=== PATIENT | female | born 1945 | race Caucasian/White ===

== ENCOUNTER 2017-08-24 11:05 | Emergency (ER) | payer MEDICARE ==
[~2017-08-24] VITALS: Ht 162.6 cm; Wt 83.9 kg
[~2017-08-24 11:05] MED LIST: ACCUNEB SO1.25 MG/1 INH; ADVAIR INH; ASPIR 8181 MG PO; LEVAQUIN 250 M250 MG PO; PANTOPRAZOLE SO40 M1 PO; PREDNISONE 10 M10 MG; UNICOMPLEX M TA1 TA1 PO
[2017-08-24 12:00] LABS: ABSOLUTE MONOCYTES 0.6 thou/uL (0.0-1.2); ABSOLUTE NEUTROPHILS 3.6 thou/uL (1.6-8.1); BASOPHILS 0.8 %; HEMATOCRIT 44.7 % (37.0-47.0); LYMPHOCYTES 18.8 %; MCH 29.3 pg (26.0-34.0); MCHC 33.5 g/dL (28.0-37.0); MCV 87.5 fL (80.0-100.0); MONOCYTES 11.3 %; MPV 8.3 fl. (7.2-11.1); NUCLEATED RBCS 0 /100WBC; PLATELET COUNT* 171 thou/uL (150-400); POLYS 69.1 %; RBC 5.11 mil/uL (4.20-5.00); RDW-CV 14.5 % (10.5-14.5); WBC 5.2 thou/uL (4.0-11.0)
[2017-08-24 12:09] LABS: ANION GAP 7 mmol/L (7-16); BUN 16 mg/dL (7-18); CALCIUM 8.5 mg/dL (8.5-10.1); CHLORIDE 100 mmol/L (98-107); CO2 29 mmol/L (21-32); CREATININE 0.7 mg/dL (0.6-1.3); GLUCOSE 105 mg/dL (70-99); POTASSIUM 3.5 mmol/L (3.5-5.1); SODIUM 136 mmol/L (136-145)
[2017-08-24 12:17] LABS: INFLUENZA A ANTIGEN None Detected (None Detect)
[2017-08-24 12:19] LABS: ALBUMIN 3.3 g/dL (3.4-5.0); ALKALINE PHOSPHATASE 75 U/L (46-116); LIPASE 112 U/L (73-393); NT-PRO BRAIN NAT PEPTIDE 57 pg/mL (<300); SGOT 33 U/L (15-37); SGPT 26 U/L (30-65); TOTAL BILIRUBIN 0.3 mg/dL (<0.1-1.0); TOTAL PROTEIN 6.8 g/dL (6.4-8.2); TROPONIN-I LEVEL <0.06 ng/mL (<0.06)
[2017-08-24] MEDS ORDERED: OSELB75 PO (12:31)
[2017-08-24 12:36] VITALS: BP 130/60
--- NOTE | 2017-08-25 11:41 | EKG ---
[place] [address] ELECTROCARDIOGRAM REPORT Name: GLENDYFARHANA TOMAS Fernando Room: [facility]#: [id number] Admission: 08/24/17 Attend Phys: Discharge: 08/24/17 Date of : 41 Report #: [id number] THIS REPORT FOR: //name// [facility] ED Test Date: 2017-08-24 Test Time: 11:14:16 Pat Name: FARHANA STYLES Department: Room: Gender: F Statistical Geneticist: Josephine CHILDS : 1945 Requested By: Magen Alarcon Order Number: [id number] MD: Warner Franklin Measurements Intervals [place] Rate: 97 P: 38 ME: 150 QRS: -24 QRSD: 83 T: 31 QT: 351 QTc: 446 Interpretive Statements Sinus rhythm consider Inferior infarct, old Anterior infarct, old Compared to ECG 01/06/2016 16:05:12 Sinus tachycardia no longer present Myocardial infarct finding still present Electronically Signed On 08-25-2017 11:41:09 ESTATE PLANNING ATTORNEY by Warner Franklin [email or web address] <ELECTRONICALLY SIGNED> By: Warner Franklin MD, [facility] 08/25/17 1141 1114 1114 Warner Franklin MD, [facility] /EPI
== END 2017-08-24 12:37 | disposition home or self-care (01) ==
LOC: M.ERS 11:05
PROVIDERS: Emergency Medicine
DX: J11.1 Influenza due to unidentified influenza virus with other respiratory manifestations (principal); R07.89 Other chest pain; J44.9 Chronic obstructive pulmonary disease, unspecified; Z90.89 Acquired absence of other organs; Z90.49 Acquired absence of other specified parts of digestive tract; Z90.710 Acquired absence of both cervix and uterus; Z88.6 Allergy status to analgesic agent; Z88.5 Allergy status to narcotic agent; Z88.0 Allergy status to penicillin; Z88.2 Allergy status to sulfonamides; Z87.891 Personal history of nicotine dependence

== ENCOUNTER 2017-09-16 13:06 | Emergency (ER) | payer MEDICARE ==
[~2017-09-16] VITALS: Ht 165.1 cm; Wt 83.9 kg
[~2017-09-16 13:06] MED LIST changes: +OSELB75 PO
[2017-09-16 13:55] VITALS: BP 144/69
== END 2017-09-16 13:55 | disposition home or self-care (01) ==
LOC: M.ERS 13:06
DX: S60.211A Contusion of right wrist, initial encounter (principal); J44.9 Chronic obstructive pulmonary disease, unspecified; Z88.6 Allergy status to analgesic agent; Z88.5 Allergy status to narcotic agent; Z88.0 Allergy status to penicillin; Z88.2 Allergy status to sulfonamides; Z87.891 Personal history of nicotine dependence; W22.8XXA Striking against or struck by other objects, initial encounter; Y93.89 Activity, other specified; Y92.89 Other specified places as the place of occurrence of the external cause; Y99.8 Other external cause status

== ENCOUNTER 2019-01-21 12:56 | Inpatient (IN) | payer MEDICARE ==
[~2019-01-21] VITALS: Ht 165.1 cm; Wt 80.2 kg
[2019-01-21 13:02] VITALS: BP 194/86
[2019-01-21 13:54] LABS: ANION GAP 8 mmol/L (7-16); APTT 33.8 Seconds (25.0-31.3); BUN 16 mg/dL (7-18); CALCIUM 8.6 mg/dL (8.5-10.1); CHLORIDE 95 mmol/L (98-107); CO2 29 mmol/L (21-32); CREATININE 0.6 mg/dL (0.6-1.3); GLUCOSE 136 mg/dL (70-99); INR 1.1; POTASSIUM 3.4 mmol/L (3.5-5.1); PROTIME 11.7 Seconds (9.20-11.50); SODIUM 132 mmol/L (136-145)
[2019-01-21 14:02] LABS: PLATELET ESTIMATE ADEQUATE
[2019-01-21 14:05] LABS: ALBUMIN 2.9 g/dL (3.4-5.0); ALKALINE PHOSPHATASE 102 U/L (46-116); NT-PRO BRAIN NAT PEPTIDE 406 pg/mL (<300); SGOT 17 U/L (15-37); SGPT 21 U/L (30-65); TOTAL BILIRUBIN 1.3 mg/dL (<0.1-1.0); TOTAL PROTEIN 7.3 g/dL (6.4-8.2); TROPONIN-I LEVEL <0.06 ng/mL (<0.06)
[2019-01-21 14:23] LABS: HEMATOCRIT 43.3 % (37.0-47.0); HEMOGLOBIN 14.3 gm/dL (12.0-15.0); MCH 28.9 pg (26.0-34.0); MCHC 33.1 g/dL (28.0-37.0); MCV 87.3 fL (80.0-100.0); MPV 8.5 fl. (7.2-11.1); PLATELET COUNT* 230 thou/uL (150-400); RBC 4.96 mil/uL (4.20-5.00); RDW-CV 14.1 % (10.5-14.5)
[2019-01-21 14:24] LABS: ABSOLUTE LYMPHOCYTES 0.7 thou/uL (0.8-5.3); WBC 13.6 thou/uL (4.0-11.0)
[2019-01-21 16:20] VITALS: BP 134/55
--- NOTE | 2019-01-21 16:20 | NUR ---
NURSE TO NURSE REPORT GIVEN TO JOSE GREEN WHO IS TO ASSUME PT CARE INPATIENT NURSE.
--- NOTE | 2019-01-21 17:49 | NUR ---
ASSESSMENT COMPLETE. PT ADMITTED WITH PNEUMONIA. PT GIVEN IV ROCEPHIN AND ZITHRO IN ER. RT QID. PT IS ON 2L PER NC, PT DOES NOT WEAR O2 AT HOME. PT HAS HX OF COPD, FORMER SMOKER. PT HAD LOW GRADE TEMP, TYLENOL GIVEN IN ER. PT TOLERATED DINNER, DENIES N/V. PT DENIES PAIN. NSR ON TELE MONITOR. PT IS RESTING IN BED WITH FAMILY AT BEDSIDE. SEE ASSESSMENT AND VITALS FOR OTHER DETAILS. CALL LIGHT WITHIN REACH, WILL CONTINUE PLAN OF CARE
[2019-01-21 18:55] LABS: URINE BILIRUBIN NEGATIVE (Negative); URINE BLOOD TRACE (Negative); URINE CLARITY CLEAR; URINE COLOR YELLOW; URINE GLUCOSE-RANDOM NEGATIVE (Negative); URINE KETONES 2+ (Negative); URINE LEUKOCYTES-REFLEX TRACE (Negative); URINE NITRITE-REFLEX NEGATIVE (Negative); URINE PROTEIN TRACE (Negative)
[2019-01-21 19:04] LABS: BACTERIA-REFLEX 1-9 Few /HPF (None Seen); CASTS None Seen /LPF (None Seen); CRYSTALS None Seen /LPF (None Seen); SQUAMOUS 0-3 Few /LPF (0-3); URINE RBC 0-2 Rare /HPF (0-2); URINE WBC-REFLEX 0-5 Rare /HPF (0-5)
[2019-01-21 20:00] VITALS: BP 166/73
--- NOTE | 2019-01-21 20:00 | NUR ---
RECEIVED REPORT AND ASSUMED CARE OF PT, ASSESSMENT COMPLETED. FAMILY AT BEDSIDE. PT SITTING UP IN BED, SOB WITH ACTIVITY. O2 ON AT 2L/NC. TELEMETRY ON SHOWING ST. WILL CONT TO MONITOR AND ASSIST NEEDED.
[2019-01-21] MEDS ORDERED: COLACE100 MG PO (21:59)
[2019-01-21] MEDS ORDERED: ALEVE220 MG PO (22:00)
--- NOTE | 2019-01-21 22:00 | NUR ---
PT INCREASINGLY SOB. O2 INCREASED TO 3L/NC. REFUSING TO TAKE RESP TX STATING IT MAKES HER BP GO UP. DR NOTIFIED AND TX CHANGED. ALSO INFORMED OF TEMP 102.2, PT STATES SHE DOES THIS AT NIGHT OCC.
[2019-01-21] MEDS ORDERED: APAP650 PO (22:01)
[2019-01-21] MEDS ORDERED: CENTRUM SILVER1 EAC4 PO (22:02)
[2019-01-22] VITALS: BP 142/56
[2019-01-22 04:00] VITALS: BP 143/72
[2019-01-22 04:33] LABS: HEMATOCRIT 42.5 % (37.0-47.0); HEMOGLOBIN 14.1 gm/dL (12.0-15.0); MCH 29.1 pg (26.0-34.0); MCHC 33.2 g/dL (28.0-37.0); MCV 87.8 fL (80.0-100.0); MPV 8.5 fl. (7.2-11.1); NUCLEATED RBCS 0 /100WBC; PLATELET COUNT* 230 thou/uL (150-400); RBC 4.83 mil/uL (4.20-5.00); RDW-CV 14.6 % (10.5-14.5); WBC 11.8 thou/uL (4.0-11.0)
[2019-01-22 04:40] LABS: CALCIUM 8.7 mg/dL (8.5-10.1); CREATININE 0.5 mg/dL (0.6-1.3); POTASSIUM 3.3 mmol/L (3.5-5.1)
--- NOTE | 2019-01-22 05:54 | NUR ---
AFTER ATIVAN GIVEN PT SLEPT VERY WELL. RESP STATUS IMPROVED. TEMP IMPROVED AND PT DIAPHORETIC. O2 REMAINS ON. ASSISTED TO BSC. TELEMETRY CONT TO SHOW ST WITH OCC PVC. HS GOALS OF REST AND SAFETY ACHIEVED. HOURLY ROUNDING OBSERVED.
[2019-01-22 05:58] LABS: ABSOLUTE LYMPHOCYTES 0.4 thou/uL (0.8-5.3); ABSOLUTE MONOCYTES 0.5 thou/uL (0.0-1.2)
[2019-01-22 05:59] LABS: PLATELET ESTIMATE ADEQUATE
--- NOTE | 2019-01-22 07:20 | NUR ---
CHANGE OF SHIFT, BEDSIDE REPORT GIVEN PATIENT SEEN AT BEDSIDE, IN BED ASLEEP ASSUMED PATIENT CARE
[2019-01-22 08:00] VITALS: BP 115/69
[2019-01-22 12:01] VITALS: BP 121/67
[2019-01-22 15:58] VITALS: BP 129/56
[2019-01-22 20:00] VITALS: BP 139/59
[2019-01-23 00:23] VITALS: BP 146/62
[2019-01-23 03:52] LABS: ABSOLUTE LYMPHOCYTES 1.2 thou/uL (0.8-5.3); ABSOLUTE MONOCYTES 0.9 thou/uL (0.0-1.2); ABSOLUTE NEUTROPHILS 10.5 thou/uL (1.6-8.1); BASOPHILS 0.1 %; HEMATOCRIT 40.5 % (37.0-47.0); HEMOGLOBIN 13.3 gm/dL (12.0-15.0); LYMPHOCYTES 9.4 %; MCHC 32.9 g/dL (28.0-37.0); MCV 88.2 fL (80.0-100.0); MONOCYTES 7.3 %; MPV 8.9 fl. (7.2-11.1); NUCLEATED RBCS 0 /100WBC; PLATELET COUNT* 233 thou/uL (150-400); POLYS 83.2 %; RBC 4.59 mil/uL (4.20-5.00); RDW-CV 14.6 % (10.5-14.5); WBC 12.7 thou/uL (4.0-11.0)
[2019-01-23 04:06] LABS: ALBUMIN 2.3 g/dL (3.4-5.0); CALCIUM 8.9 mg/dL (8.5-10.1); CREATININE 0.6 mg/dL (0.6-1.3); POTASSIUM 3.1 mmol/L (3.5-5.1); TOTAL BILIRUBIN 0.2 mg/dL (<0.1-1.0); TOTAL PROTEIN 6.4 g/dL (6.4-8.2)
[2019-01-23 04:08] VITALS: BP 152/70
--- NOTE | 2019-01-23 05:36 | NUR ---
PT SLEPT ON AND OFF THIS SHIFT. ASSESSMENT DOCUMENTED. MEDS GIVEN PER E-MAR. IV PATENT. PT ANXIOUS AT TIMES THIS SHIFT. TELE MONITOR READING SR. OR WORN. WILL CONTINUE WITH PLAN OF CARE.
--- NOTE | 2019-01-23 07:10 | NUR ---
CHANGE OF SHIFT, BEDSIDE REPORT GIVEN PATIENT SEEN IN BED WITH DAUGHTER AT BEDSIDE ASSUMED PATIENT CARE
[2019-01-23 07:30] VITALS: BP 157/70
[2019-01-23 12:09] VITALS: BP 149/64
[2019-01-23 16:30] VITALS: BP 144/58
[2019-01-23 20:30] VITALS: BP 132/71
[2019-01-24] VITALS: BP 170/74
[2019-01-24 04:00] VITALS: BP 179/81
[2019-01-24 05:06] LABS: ABSOLUTE LYMPHOCYTES 1.1 thou/uL (0.8-5.3); ABSOLUTE MONOCYTES 0.4 thou/uL (0.0-1.2); ABSOLUTE NEUTROPHILS 11.1 thou/uL (1.6-8.1); BASOPHILS 0.1 %; HEMATOCRIT 39.7 % (37.0-47.0); HEMOGLOBIN 13.2 gm/dL (12.0-15.0); LYMPHOCYTES 8.5 %; MCH 29.1 pg (26.0-34.0); MCHC 33.1 g/dL (28.0-37.0); MCV 87.8 fL (80.0-100.0); MONOCYTES 3.5 %; MPV 8.7 fl. (7.2-11.1); NUCLEATED RBCS 0 /100WBC; PLATELET COUNT* 272 thou/uL (150-400); POLYS 87.9 %; RBC 4.53 mil/uL (4.20-5.00); RDW-CV 14.5 % (10.5-14.5); WBC 12.7 thou/uL (4.0-11.0)
[2019-01-24 05:32] LABS: PREALBUMIN 11.7 mg/dL (18.0-35.7)
[2019-01-24 05:50] LABS: ALBUMIN 2.2 g/dL (3.4-5.0); CREATININE 0.7 mg/dL (0.6-1.3); POTASSIUM 4.4 mmol/L (3.5-5.1); TOTAL BILIRUBIN 0.2 mg/dL (<0.1-1.0); TOTAL PROTEIN 6.2 g/dL (6.4-8.2)
--- NOTE | 2019-01-24 06:55 | NUR ---
PATIENT SLEPT OFF AND ON THIS SHIFT. ASSESSMENT CHARTED. MEDS ADMINISTERED PER EMAR. NO ACUTE CHANGES OVERNIGHT. WILL CONTINUE TO MONITOR PLAN OF CARE.
--- NOTE | 2019-01-24 09:02 | CON ---
[address] [address] CONSULTATION Name: FARHANA STYLSE Room: [address] IN M.R.#: [id number] Admission: 01/21/19 Attend Phys: Richard Cash MD Discharge: Date of : 41 Report #: [id number] THIS REPORT FOR: //name// CC: Richard ALFARO REQUESTING PHYSICIAN: Richard Cash MD INDICATION FOR CONSULTATION: Shortness of breath. HISTORY OF PRESENT ILLNESS: This is a 73-year-old female. She carries a diagnosis of chronic obstructive pulmonary disease. She does appear to have had significant bronchospasm; however, it is not completely clear to me if the patient in fact has chronic obstructive pulmonary disease or asthma. As noted below it appears at first glance more likely to me that the patient has asthma instead. She does have a remote history of smoking. At this time, the patient was admitted 2 days ago, presentation was with increasing shortness of breath. The patient has also been coughing and had been bringing up green and yellow sputum. She had reported feeling febrile as well and did have a low-grade fever of 37.8 degrees Celsius on presentation. She has had significant hoarseness. She is not able to describe to me how long she has had this hoarseness. She, however, does not describe a sore throat or runny nose, otherwise. She has had some pain in lower extremities. She has had varicose veins. She does not report any change in these. She does not have swelling of lower extremities. The patient has only had rare episodes of heartburn. She does have a history of disturbed sleep at night as well as sleepiness during the day. She has had some joint pains, which remain at baseline. She does not have abdominal pain. She does not have nausea, vomiting, diarrhea or constipation. She does not have any urinary complaints. REVIEW OF SYSTEMS: I asked her 14 questions for review of systems. The patient answered to the negative except as mentioned above. PAST MEDICAL HISTORY: History of obstructive lung disease. Chronic obstructive pulmonary disease versus asthma, see further discussion as below. Uncontrolled hypertension, blood pressure on admission was 201/80. She has had influenza in the past, appendectomy, and hysterectomy. There is an echo done 2 years ago, which does show changes consistent with hypertension with left ventricular hypertrophy, but normal left ventricular ejection fraction and no elevation in the right heart pressures. Also, history of right wrist contusion and palpitations. SOCIAL HISTORY: She says that she was a smoker when she was young, but she discontinued when she was in her mid 30s and [place] [address] CONSULTATION Name: FARHANA STYLES Room: [address] IN ..#: [id number] Admission: 01/21/19 Attend Phys: Richard Cash MD Discharge: Date of : 41 Report #: [id number] known history of heavy alcohol use or illegal drug use. CURRENT MEDICATIONS: List in This Week In reviewed. HOME MEDICATIONS: She is noted to be on Advair at home. FAMILY HISTORY: There is no family history pertinent to the presenting complaint. ALLERGIES: SHE IS REPORTED TO HAVE AN ALLERGY TO PENICILLIN. I DO NOT HAVE DETAILS AVAILABLE. SHE IS TOLERATING CEPHALOSPORINS WITHOUT ANY PROBLEMS. SHE IS REPORTED TO HAVE HAD ADVERSE REACTIONS OR ALLERGIES TO CODEINE AND BACTRIM WELL. AGAIN, DETAILS ARE NOT AVAILABLE. SHE HAS HAD SOME ITCHING WITH PREDNISONE; HOWEVER, I AM DOUBTFUL THAT SHE ACTUALLY IS ALLERGIC TO PREDNISONE. PHYSICAL EXAMINATION: GENERAL: She is alert, awake and oriented. Her responses to questions frequently are, however, not related to the questions asked. For example, when I asked her when she came to this hospital, she responded by telling me when she had pneumonia vaccines. She does answer orientation questions correctly. She does appear to be hoarse. VITAL SIGNS: Has a pulse of 90 and a blood pressure 144/58. She is saturating 93%. She is not on supplemental oxygen. Respiratory rate is mildly elevated to 20. She is afebrile now with a temperature of 36.7. Two days ago, she had a fever of 37.8. HEENT: Head is normocephalic and atraumatic. Pupils are equal and reactive. There is no throat erythema. There is no thrush in her throat. Airway is Mallampati 3. NECK: Does not show raised JVP, asymmetry, mass or lymph nodes. CHEST: Symmetrical expansion on inspection and palpation. On auscultation, breath sounds are bilaterally equal, decreased, expirations are prolonged. I do not hear any added sounds. HEART: Regular. There is no murmur. ABDOMEN: Soft and nontender. EXTREMITIES: Lower extremities show no edema. There are significant varicose veins noted bilaterally. There is some calf discomfort. SKIN: However, is dry and intact. NEUROLOGICAL: Moves all extremities bilaterally equally and spontaneously with no focal deficit identified. LABORATORY DATA: The patient's chest x-ray is reviewed and compared with the patient's previous chest x-rays. There are chronic changes suspicious of an interstitial lung disease noted. I do not see any definite evidence of new infiltrate; however, I cannot rule out due to the presence of these chronic changes. The patient's CBC as well as chemistries from this morning are noted. Potassium of 3.1 this morning noted. I requested magnesium to be added to this [address] [place] [address] CONSULTATION Name: FARHANA STYLES Room: [address] IN .R.#: [id number] Admission: 01/21/19 Attend Phys: Richard Cash MD Discharge: Date of : 41 Report #: [id number] morning's labs, which came back normal. Coagulation studies in [facility] reviewed. There are no positive cultures so far. ASSESSMENT AND PLAN: 1. Acute respiratory insufficiency. The patient does appear to be bronchospastic. In addition, she does appear to have acute bacterial bronchitis. This is the likely etiology of her acute respiratory insufficiency. 2. Bronchial asthma exacerbation. The patient does have an obstructive lung disease. Certainly, it will be possible that she has chronic obstructive pulmonary disease instead. I do not have full details available. At this time, it appears more likely to me though that she has asthma. We will continue with Solu-Medrol as currently described. She is on low dose of Xopenex. We potentially could increase the dose or switch her over to albuterol. I went ahead in fact and switched her over to DuoNeb in addition to adding Singulair. The patient has significant hoarseness. Therefore, for now, I discontinued her budesonide nebulizer as this will worsen hoarseness. In the long run, however, I do feel that she will benefit from an inhaled corticosteroid and I suggest restarting an inhaled corticosteroid once her hoarseness improves. Note that she has been taking Advair at home. 3. Lung infiltrates/lung scarring. Most of the infiltrates noted on the patient's chest x-ray appeared to be due to old scarring, but she has had significant cough with sputum production. Therefore, I feel that it is reasonable to treat with Zithromax as well as ceftriaxone, as is currently prescribed. Since most of the changes are longstanding, I would go ahead and obtain a CT chest without contrast, but with high resolution as this is suspicious of an underlying interstitial lung disease. 4. Hoarseness. See discussion as above. There may be a component of gastroesophageal reflux as well. The patient already is on Protonix. The patient may benefit from ENT evaluation if hoarseness persists. 5. Hypokalemia. Potassium was 3.1 this morning. The patient has since then received Lasix. I therefore went ahead and placed her on the replacement protocol. 6. Hyperglycemia. She does not have a history of diabetes. Recommend followup. This may be related to Solu-Medrol. As I would like to replace the potassium first, I did not address it at this time, I would defer followup to the hospitalist service Hyperglycemia may in fact improve when the Solu-Medrol dose is decreased later. 7. Deep venous thrombosis prophylaxis. The patient is on Lovenox. Thanks for this consultation. <ELECTRONICALLY SIGNED> By: Vikas Farris MD 01/24/1902 [id number] Do MD /nt
[2019-01-24 10:00] VITALS: BP 164/70
--- NOTE | 2019-01-24 10:00 | NUR ---
ASSUMED CARE AFTER REPORT. A&OX4, ABLE TO COMMUNICATE NEEDS TO STAFF. IT HELP DESK MANAGER IN PLACE, SR, O2 SATS 94% RA. UP WITH WALKER TO BSC WITH SBA. NO C/O PAIN, NAUSEA, SOA OR OTHER DISTRESS. TEARFUL WHEN SPEAKING ABOUT FAMILY STRESSORS. THERAPEUTIC COMMUNICATION TECHNIQUE: LISTENING. CALL LIGHT IN REACH.
--- NOTE | 2019-01-24 10:38 | EKG ---
[place] [address] ELECTROCARDIOGRAM REPORT Name: FARHANA STYLES Room: [address] ADM IN .R.#: [id number] Admission: 01/21/19 Attend Phys: Richard Cash MD Discharge: Date of : 41 Report #: [id number] THIS REPORT FOR: //name// [facility] ED Test Date: 2019-01-21 Test Time: 13:08:45 Pat Name: FARHANA STYLES Department: Room: [facility] Gender: F Wastewater Project Manager: RICHIE : 1945 Requested By: Gabriel Churchill Order Number: [id number] MD: Warner Franklin Measurements Intervals [place] Rate: 114 P: 57 OK: 164 QRS: -14 QRSD: 90 T: 30 QT: 319 QTc: 440 Interpretive Statements Sinus tachycardia Anterior infarct, old Compared to ECG 08/24/2017 11:14:16 Sinus rhythm no longer present Myocardial infarct finding still present Electronically Signed On 01-24-2019 10:38:08 CDT by Warner Franklin [email or web address] <ELECTRONICALLY SIGNED> By: Warner Franklin MD, FACC 01/24/19 1038 1308 1308 Warner Franklin MD, [facility] /EPI
[2019-01-24 11:54] VITALS: BP 153/58
--- NOTE | 2019-01-24 13:04 | NUR ---
Nutrition: Pt admitted with PNA. COPD, kyphosis, pulm fibrosis. BG 239, alb 2.2, prealb 11.7. 2gm Na diet, poor po intake. Wt is near usual, 166#. RX: solumedrol. Severely sepleted protein stores and nsg risk [address] order Glucerna for added nutrition. Consider Mild risk at this time.
--- NOTE | 2019-01-24 15:19 | NUR ---
cm completed initial assessment to complete d/c planning. pt a&Ox4. pt states she lives alone. dtrs are her support system. pt is independent w/cares and she drives and works in her garden. pt states she uses cane, and walker for support when using the commode at this if she cannot make it to the restroom. pt has used HH in the distance past; however, she doesnt recall which company she used. no hx w/snf. pt doesnt have any anticipated needs. cm will remain available to assist if needed.
[2019-01-24 15:49] VITALS: BP 138/69
--- NOTE | 2019-01-24 18:30 | NUR ---
PATIENT RESTING IN CHAIR. UP TO CHAIR FOR MEALS TODAY. AMBULATING WITH WALKER ACROSS ROOM WITH STAFF PRESENT. SETH MENDOZA APPLIED BILAT LE. PATIENT WALKER WELL. ABX INFUSED ORDERED. PATIENT STATES "THE DOCTOR SAYS I NEED TO TAKE IT ONE DAY AT A TIME." APPROPRIATE USE OF CALL LIGHT. PROGRESSING TOWARD GOALS.
[2019-01-24 20:00] VITALS: BP 143/64
[2019-01-25] VITALS (8 sets, daily range): BP systolic 156–206; BP diastolic 66–100
--- NOTE | 2019-01-25 09:46 | NUR ---
ASSUMED CARE AFTER REPORT. A&OX4. ABLE TO COMMUNICATE NEEDS TO STAFF. ACUTE CARE NURSE PRACTITIONER IN PLACE, SR. O2 SATS 94%. BP ELEVATED, PRN HYDRALAZINE GIVEN PER SEP. RECHECK REVEALS BP APPROPRIATE USE OF CALL LIGHT WHEN IN NEED OF BSC. HOURLY ROUNDING FOR SAFETY AND PATIENT NEEDS.
[2019-01-26] VITALS: BP 181/77
[2019-01-26 04:00] VITALS: BP 194/92
[2019-01-26 05:46] LABS: HEMATOCRIT 41.1 % (37.0-47.0); HEMOGLOBIN 13.6 gm/dL (12.0-15.0); MCHC 33.1 g/dL (28.0-37.0); MCV 87.5 fL (80.0-100.0); MPV 8.5 fl. (7.2-11.1); NUCLEATED RBCS 0 /100WBC; PLATELET COUNT* 309 thou/uL (150-400); RDW-CV 14.7 % (10.5-14.5); WBC 17.1 thou/uL (4.0-11.0)
[2019-01-26 05:48] LABS: CALCIUM 8.9 mg/dL (8.5-10.1); CREATININE 0.5 mg/dL (0.6-1.3); POTASSIUM 3.8 mmol/L (3.5-5.1)
[2019-01-26 06:42] LABS: ABSOLUTE LYMPHOCYTES 1.5 thou/uL (0.8-5.3); ABSOLUTE MONOCYTES 0.5 thou/uL (0.0-1.2); METAMYELOCYTES 2 %; MYELOCYTES 1 %; PLATELET ESTIMATE ADEQUATE
[2019-01-26 06:43] LABS: ANISOCYTOSIS 1+; TOXIC GRANULATION 3+
--- NOTE | 2019-01-26 07:33 | NUR ---
PT VERY ANXIOUS THROUGHOUT THE SHIFT STATING "I DONT KNOW WHY MY BLOOD PRESSURE IS SO HIGH. ITS NEVER THIS HIGH AT HOME. I KNOW IT'S THE BREATHING TREATMENTS." PT'S BP WAS 199/100 IMMEDIATELY PRIOR TO HS BREATHING TX. PRN HYDRALAZINE GIVEN X 2 THIS SHIFT WELL PRN XANAX. MINIMAL TO MODERATE EFFECTIVENESS. PT REFUSED AM RT TX. CALL LIGHT IN REACH. HOURLY ROUNDING FOR SAFETY.
[2019-01-26 08:00] VITALS: BP 179/86
[2019-01-26 11:30] VITALS: BP 147/62
--- NOTE | 2019-01-26 13:25 | NUR ---
CONTINUE TO FOLLOW, MET WITH PT TO DISCUSS DC, POSSIBLY TOMORROW. PT STATES SHE HAS GOOD SUPPORT FROM HER DTRS THAT LIVE CLOSEBY. PT IS NORMALLY VERY INDEPENDENT; DRIVES, MOWS AND JUST [place]. SHE PLANS TO RETURN HOME. ENCOURAGED ACTIVITY TODAY
[2019-01-26 15:37] VITALS: BP 161/68
--- NOTE | 2019-01-26 18:43 | NUR ---
VSS, ASSUMED CARE IN THE AM, ASSESSMENT PERFORMED AND CHARTED, FALL PRECAUTIONS IN PLACE AND CALL LIGHT IN REACH, PT IS A&O4 AND UP AD HANH, PT DENIES ANY PAIN, SHE IS TRAING SR ON THE MONITOR, ON RA, AND HER GOAL IS TO WALK TO BATH ROOM AND SIT UP IN CHAIR, AT THIS TIME GAOLS HAVE BEEN MET, PT SHOULD D/C LEANEN, HOURLY ROUNDS COMPLETED AND CHARTED, CHECKED,
[2019-01-26 20:00] VITALS: BP 157/66
[2019-01-27] VITALS: BP 147/64
[2019-01-27 04:00] VITALS: BP 152/65
[2019-01-27 08:00] VITALS: BP 151/73
--- NOTE | 2019-01-27 09:50 | NUR ---
POWDER CORE TESTER INFORMED THAT THE PATIENT IS READY TO D/C TODAY AND WILL NEED HH. D/C MANAGER CENTER SPOKE TO THE PATIENT TO DISCUSS DISCHARGE PLANING AND CHOICE OF HH. PATIENT INFORMS THAT SHE WOULD LIKE HH WITH [facility]. CHOICE OF VENDOR FORM COMPLETED AND COPY PLACED ON CHART. D/C MANAGER CENTER INFORMED [facility] OF THE HH REFERRAL AND FAXED THE PATIENT'S FACESHEET, H&P, AND D/C ORDERS. CM WILL REMAIN AVAILABLE TO ASSIST AND FOLLOW NEEDED. [facility] PHONE: [phone] FAX: [phone]
[2019-01-27 09:54] VITALS: BP 151/73
[2019-01-27 12:29] VITALS: BP 139/64
[2019-01-27] MEDS ORDERED: MEDROLDOSEPACK PO (12:45)
[2019-01-27] MEDS ORDERED: PROTONIX40 M1 PO (12:46)
[2019-01-27] MEDS ORDERED: SINGULAIR 10 MG10 M1 PO (12:46)
[2019-01-27] MEDS ORDERED: CEFDINIR300 MG PO (12:48)
--- NOTE | 2019-01-27 16:29 | NUR ---
DISCHARGE NOTE - REVIEWED INSTRUCTIONS WITH PT AND DTR. NO QUESTIONS. IV REMOVED. ALL BELONGINGS SENT WITH PT.
== END 2019-01-27 16:30 | disposition home health service (06) | DRG 177 ==
LOC: M.ERS 12:56 → M.TBA-ER 14:30 → M.2W 14:30
PROVIDERS: Emergency Medicine Emergency Medical Services; ADMIT Internal Medicine
DX: J15.6 Pneumonia due to other Gram-negative bacteria (principal); J96.00 Acute respiratory failure, unspecified whether with hypoxia or hypercapnia; J45.901 Unspecified asthma with (acute) exacerbation; J44.1 Chronic obstructive pulmonary disease with (acute) exacerbation; R65.10 Systemic inflammatory response syndrome (SIRS) of non-infectious origin without acute organ dysfunction; E87.1 Hypo-osmolality and hyponatremia; J44.0 Chronic obstructive pulmonary disease with (acute) lower respiratory infection; I10 Essential (primary) hypertension; R49.0 Dysphonia; E87.6 Hypokalemia; R73.9 Hyperglycemia, unspecified; J84.10 Pulmonary fibrosis, unspecified; Z90.49 Acquired absence of other specified parts of digestive tract; Z90.710 Acquired absence of both cervix and uterus; Z87.891 Personal history of nicotine dependence; Z88.6 Allergy status to analgesic agent; Z88.0 Allergy status to penicillin; Z88.2 Allergy status to sulfonamides

== ENCOUNTER → 2019-04-15 | Outpatient (CLI) | payer MEDICARE ==
[~2019-04-15] MED LIST changes: +ACETAMINOPHEN500 M1 PO; +ADVAIR 250-501 EACH INH; +ALEVE220 MG PO; +APAP650 PO; +CEFDINIR300 MG PO; +CENTRUM SILVER1 EAC4 PO; +COLACE100 MG PO; +ESTRACE42.5 GM VAG; +FLONASE 0.05%50 MCG NASAL; +MEDROLDOSEPACK PO; +PERCOCET 5-3251 EACH PO; +PROTONIX40 M1 PO; +SINGULAIR 10 MG10 M1 PO; +XARELTO10 M1 PO
== END ==
LOC: M.MRI 11:30
DX: S83.231A Complex tear of medial meniscus, current injury, right knee, initial encounter (principal); M17.11 Unilateral primary osteoarthritis, right knee; X58.XXXA Exposure to other specified factors, initial encounter; Y93.89 Activity, other specified; Y92.89 Other specified places as the place of occurrence of the external cause; Y99.8 Other external cause status

== ENCOUNTER 2019-05-24 05:49 | Inpatient (IN) | payer MEDICARE ==
[2019-05-12 09:22] LABS: URINE BILIRUBIN NEGATIVE (Negative); URINE BLOOD NEGATIVE (Negative); URINE CLARITY CLEAR; URINE COLOR YELLOW; URINE GLUCOSE-RANDOM NEGATIVE (Negative); URINE KETONES NEGATIVE (Negative); URINE NITRITE-REFLEX NEGATIVE (Negative); URINE PROTEIN NEGATIVE (Negative); URINE SPECIFIC GRAVITY <= 1.005 (1.005-1.030); URINE UROBILINOGEN 0.2 E.U./dl (0.2-1.0)
[2019-05-12 09:23] LABS: URINE LEUKOCYTES-REFLEX 2+ (Negative)
[2019-05-12 09:25] LABS: HEMATOCRIT 45.6 % (37.0-47.0); HEMOGLOBIN 15.2 gm/dL (12.0-15.0); MCH 29.6 pg (26.0-34.0); MCHC 33.5 g/dL (28.0-37.0); MCV 88.5 fL (80.0-100.0); MPV 7.8 fl. (7.2-11.1); RBC 5.15 mil/uL (4.20-5.00); RDW-CV 14.5 % (10.5-14.5); WBC 8.7 thou/uL (4.0-11.0)
[2019-05-12 09:30] LABS: PROTIME 10.3 Seconds (9.20-11.50)
[2019-05-12 09:31] LABS: SQUAMOUS 4-10 Moderate /LPF (0-3); URINE WBC-REFLEX 6-15 Few /HPF (0-5)
[2019-05-12 09:32] LABS: BACTERIA-REFLEX 1-9 Few /HPF (None Seen); CASTS None Seen /LPF (None Seen); CRYSTALS None Seen /LPF (None Seen); MUCUS None Seen strn/LPF (None Seen); URINE RBC 0-2 Rare /HPF (0-2)
[2019-05-12 09:34] LABS: ALBUMIN 3.8 g/dL (3.4-5.0); CALCIUM 9.6 mg/dL (8.5-10.1); CREATININE 0.6 mg/dL (0.6-1.3); POTASSIUM 3.6 mmol/L (3.5-5.1); TOTAL BILIRUBIN 0.3 mg/dL (<0.1-1.0); TOTAL PROTEIN 7.2 g/dL (6.4-8.2)
[~2019-05-24] VITALS: Ht 162.6 cm; Wt 83.9 kg
[~2019-05-24 05:49] MED LIST changes: -PERCOCET 5-3251 EACH PO; -XARELTO10 M1 PO
[2019-05-24 11:25] VITALS: BP 198/93
[2019-05-25 00:26] VITALS: BP 129/53
[2019-05-25 04:21] VITALS: BP 101/54
[2019-05-25 04:32] LABS: HEMATOCRIT 40.8 % (37.0-47.0); HEMOGLOBIN 13.1 gm/dL (12.0-15.0)
[2019-05-25 08:02] VITALS: BP 124/48
[2019-05-25 16:48] VITALS: BP 151/59
[2019-05-25 19:30] VITALS: BP 142/54
--- NOTE | 2019-05-25 22:59 | OP ---
[facility] [address] [place] [address] OPERATIVE REPORT Name: FARHANA STYLES Room: [address] IN M.R.#: [id number] Admission: 05/24/19 Attend Phys: Tiffany Rachel Discharge: Date of : 41 Report #: [id number] THIS REPORT FOR: //name// CC: SARAH Lantigua DATE OF SERVICE: 05/24/2019 PREOPERATIVE DIAGNOSIS: Right knee osteoarthritis. POSTOPERATIVE DIAGNOSIS: Right knee osteoarthritis. PROCEDURE: Right total knee arthroplasty. SURGEON: Magen Velázquez II, DO. BREWING DIRECTOR: JAYLAN Mccoy. ANESTHESIA: General endotracheal. ESTIMATED BLOOD LOSS: 50 mL. ANTIBIOTICS: Ancef preoperatively. DRAINS: Medium Hemovac. COMPLICATIONS: None. CONDITION OF THE PATIENT: Stable to recovery room. IMPLANTS: Listed in operative record and progress note. BRIEF HISTORY: The patient was seen in the preoperative area. Preoperative H and P was performed. Site was marked, questions were answered. Risks and benefits were discussed with the patient in detail about surgery. The patient wished to proceed, assuming all risks. DESCRIPTION OF PROCEDURE: The patient was taken to the operative suite and placed supine on the OR table in appropriate anesthesia. A well-padded tourniquet was applied to the upper thigh, which was inflated to 300 mmHg after gravity exsanguination. The operative knee was sterilely prepped and draped. Surgery began by midline incision. This was carried down to the subcutaneous tissues. A medial parapatellar arthrotomy was performed and carried down to bone. The patella was then everted and excess soft tissues removed from around the femur. Femoral cutting block was then applied, checked with a drop evangelina for [address] [address] OPERATIVE REPORT Name: GLENDYCHELYSTARRFARHANA KAY Room: [address] IN [facility].#: [id number] Admission: 05/24/19 Attend Phys: Tiffany Rachel Discharge: Date of : 41 Report #: [id number] rotational alignment, pinned in appropriate position and appropriate cuts were made. A 4-in-1 cutting block was then applied, checked for rotational alignment, pinned in appropriate position and appropriate cuts were made. The tibia was then exposed. Excess meniscus was removed. Retractor was placed on collateral ligaments. The tibial cutting block was then applied, pinned in appropriate position, checked with drop evangelina for rotational alignment and slope and appropriate cut was made. The tibial bone was removed. The tibial base plate was then applied, checked for rotational alignment with the drop evangelina and pinned in appropriate position. The femur was then applied and box cut was reamed. This was then trialed with appropriate spacer, which showed excellent fit and fill and excellent stability of the knee through all range of motion. Patella was then reamed in appropriate fashion and sized to appropriate size. Three peg holes were drilled and it was then trialed and showed excellent flexion, extension, excellent tracking of the patella within the groove. These trials were removed. The tibia was then punched in appropriate fashion. Bone ends were cleansed with Pulsavac irrigation and cement was mixed and applied to final implants. These were then malleted in position, held the knee in extension and compressed to allow cement to cure. After it cured, excess was removed using [place] and osteotome. Wound was then copiously irrigated and the final spacer was then malleted into position. The tourniquet was deflated. Hemostasis was obtained with electrocautery. Pain cocktail was injected. PRP gel was sprayed throughout the internal aspects of the knee. Medium Hemovac drain was applied. Capsule was closed with #2 FiberWire and #1 Vicryl in [id number]-[id number] fashion. Skin was closed with 2-0 Vicryl and running 3-0 Monocryl. Dermabond and sterile dressing was then applied. Frankie wrap and PolarCare applied. The patient transported to recovery room in stable condition. Counts were correct throughout the procedure. <ELECTRONICALLY SIGNED> By: Magen Velázquez II, DO 05/25/19 2259 [id number] [id number] Velázquez II, DO /nt
[2019-05-26 03:56] LABS: HEMATOCRIT 39.6 % (37.0-47.0); HEMOGLOBIN 12.8 gm/dL (12.0-15.0); MCH 28.7 pg (26.0-34.0); MCHC 32.3 g/dL (28.0-37.0); MCV 88.7 fL (80.0-100.0); RBC 4.46 mil/uL (4.20-5.00); RDW-CV 14.4 % (10.5-14.5); WBC 11.5 thou/uL (4.0-11.0)
[2019-05-26 04:22] LABS: ALBUMIN 2.5 g/dL (3.4-5.0); CALCIUM 8.2 mg/dL (8.5-10.1); CREATININE 0.6 mg/dL (0.6-1.3); MAGNESIUM 1.9 mg/dL (1.8-2.4); TOTAL BILIRUBIN 0.5 mg/dL (<0.1-1.0); TOTAL PROTEIN 5.8 g/dL (6.4-8.2)
[2019-05-26 08:00] VITALS: BP 135/54
[2019-05-26 20:00] VITALS: BP 138/57
[2019-05-27] VITALS: BP 156/63
[2019-05-27 03:58] VITALS: BP 124/73
[2019-05-27 07:30] VITALS: BP 130/56
[2019-05-27] MEDS ORDERED: PERCOCET 5-3251 EACH PO (12:17)
[2019-05-27 12:18] VITALS: BP 130/56
[2019-05-27] MEDS ORDERED: XARELTO10 M1 PO (12:18)
== END 2019-05-27 15:30 | DRG 469 ==
LOC: M.PRE 05:49 → M.TBA 10:18 → M.ORTHSURG 10:18 → M.PRE 10:55 → M.ORTHSURG 15:19
PROVIDERS: Family Medicine; Orthopaedic Surgery; ADMIT Internal Medicine
PROC: 0SRC0J9 Replacement of Right Knee Joint with Synthetic Substitute, Cemented, Open Approach (ICD-10-PCS; principal; 2019-05-24)
DX: M17.11 Unilateral primary osteoarthritis, right knee (principal); E43 Unspecified severe protein-calorie malnutrition; J44.9 Chronic obstructive pulmonary disease, unspecified; E66.01 Morbid (severe) obesity due to excess calories; Z87.891 Personal history of nicotine dependence; Z88.6 Allergy status to analgesic agent; Z88.0 Allergy status to penicillin; Z88.2 Allergy status to sulfonamides; Z88.8 Allergy status to other drugs, medicaments and biological substances; Z79.899 Other long term (current) drug therapy; Z79.82 Long term (current) use of aspirin; Z87.01 Personal history of pneumonia (recurrent); Z90.710 Acquired absence of both cervix and uterus; Z90.49 Acquired absence of other specified parts of digestive tract; Z68.31 Body mass index [BMI] 31.0-31.9, adult; G89.18 Other acute postprocedural pain

== ENCOUNTER 2019-12-24 15:23 | Inpatient (IN) | payer MEDICARE ==
[~2019-12-24] VITALS: Ht 162.6 cm; Wt 89.4 kg
[~2019-12-24 15:23] MED LIST changes: +PERCOCET 5-3251 EACH PO; +XARELTO10 M1 PO
[2019-12-24 15:39] VITALS: BP 204/91
[2019-12-24] MEDS ORDERED: MEDROLDOSEPACK PO (18:04)
[2019-12-24] MEDS ORDERED: HYDROCODON-ACE1 EAC7 PO (18:04)
[2019-12-24 18:50] LABS: HEMATOCRIT 47.2 % (37.0-47.0); MCH 29.5 pg (26.0-34.0); MCHC 33.9 g/dL (28.0-37.0); MCV 87.1 fL (80.0-100.0); MPV 7.9 fl. (7.2-11.1); NUCLEATED RBCS 0 /100WBC; PLATELET COUNT* 256 thou/uL (150-400); RBC 5.41 mil/uL (4.20-5.00); RDW-CV 15.1 % (10.5-14.5); WBC 13.1 thou/uL (4.0-11.0)
[2019-12-24 18:59] LABS: CALCIUM 8.8 mg/dL (8.5-10.1); CREATININE 0.5 mg/dL (0.6-1.3); POTASSIUM 3.8 mmol/L (3.5-5.1)
[2019-12-24 19:03] LABS: ALBUMIN 3.7 g/dL (3.4-5.0); TOTAL BILIRUBIN 0.7 mg/dL (<0.1-1.0); TOTAL PROTEIN 7.9 g/dL (6.4-8.2)
[2019-12-24 19:12] LABS: ABSOLUTE EOSINOPHILS 0.3 thou/uL (0.0-0.7); ABSOLUTE LYMPHOCYTES 0.8 thou/uL (0.8-5.3); ABSOLUTE MONOCYTES 0.7 thou/uL (0.0-1.2); ABSOLUTE NEUTROPHILS 11.4 thou/uL (1.6-8.1); PLATELET ESTIMATE ADEQUATE
[2019-12-24 19:13] LABS: ANISOCYTOSIS Occasional
[2019-12-24 20:00] VITALS: BP 202/92
[2019-12-24 20:35] VITALS: BP 194/89
[2019-12-24 23:01] VITALS: BP 193/96
--- NOTE | 2019-12-24 23:44 | NUR ---
CONTACTED ON-CALL MD REGARDING PT'S HIGH BLOOD PRESSURE; TALKED TO MD- NO NEW ORDERS AT THIS TIME.
[2019-12-25 03:55] VITALS: BP 149/63
--- NOTE | 2019-12-25 05:14 | NUR ---
PT ADMITTED TO ROOM 203 DURING THIS SHIFT; VSS (EXCEPT FOR ELEVATED BP; MD POWERS), A+OX4, SINUS TACHICARDIA, PT REPORTS PAIN ONLY DURING MOVEMENT, UNABLE TO SIT OR GET OUT OF BED D/T PAIN IN BACK. SHE IS ABLE TO COMMUNICATE HER NEEDS TO STAFF EFFECTIVELY. SHE HAS DENIED THE NEED FOR PAIN MEDICATION UP TO THIS TIME. PT HAS BEEN CONSULTED FOR AN EVAL/TREATMENT APPROPRIATE.
[2019-12-25 08:00] VITALS: BP 155/75
--- NOTE | 2019-12-25 08:00 | NUR ---
AM ASSESSMENT COMPLETE, DEFER TO COMPUTER CHARTING. NAIL GALVANIZER TRACKING SR TO ST. REPORTING HAVING BACK PAIN, REFUSING PAIN MEDICATION WHEN OFFERED. ICE PACK AND LIDOCAINE PATCH PLACED ON BACK TO ASSIST WITH PAIN CONTROL. HOB ELEVATED, CALL LIGHT WITHIN REACH. WILL MONITOR.
[2019-12-25 16:00] VITALS: BP 181/81
--- NOTE | 2019-12-25 17:59 | NUR ---
INDUSTRIAL ECONOMICS TEACHER DC'D EARLIER PER ORDERS. PATIENT APPEARS TO MORE COMFORTABLE DURING SHIFT - ICE PACK AND HEAT APPLIED TO ASSIST WITH COMFORT. CONTINUES TO REFUSING ANY FURTHER PAIN MEDICATION AT THIS TIME. USING BEDPAN TO VOID. CALL LIGHT WITHIN REACH. WILL CONTINUE WITH PLAN OF CARE.
[2019-12-25 19:30] VITALS: BP 166/72
[2019-12-26 05:00] VITALS: BP 179/90
[2019-12-26 07:20] VITALS: BP 184/74
--- NOTE | 2019-12-26 13:31 | NUR ---
Pt is A&O. Resides at home alone. Active and independent. Pt has a walker and cane that she can uses if needed. Hx of [facility]. Hx of skilled at [facility]. Supportive kids. Pt may be having a kyphoplasty, and will likely need skilled vs rehab at me. Per Pt, she does not have anyone that could stay with her 24hrs/day if needed post acute rehab, so would want to dc to [facility] at [facility]. Following.
[2019-12-26] MEDS ORDERED: AYR SALINE50 ML NASAL (16:17)
[2019-12-26 16:22] VITALS: BP 178/83
[2019-12-26 19:30] VITALS: BP 189/74
[2019-12-27] VITALS: BP 184/75
[2019-12-27 04:00] VITALS: BP 194/83
--- NOTE | 2019-12-27 06:50 | NUR ---
PT BP ELEVATED, MEDICATION GIVEN BP IMPROVED
--- NOTE | 2019-12-27 07:05 | NUR ---
CHANGE OF SHIFT, BEDSIDE REPORT GIVEN PATIENT SEEN AT BESIDE, IN BED ASLEEP ASSUMED PTIENT CARE
[2019-12-27 07:50] LABS: HEMATOCRIT 46.2 % (37.0-47.0); HEMOGLOBIN 15.7 gm/dL (12.0-15.0); MCH 29.6 pg (26.0-34.0); MCV 87.1 fL (80.0-100.0); MPV 8.3 fl. (7.2-11.1); RBC 5.31 mil/uL (4.20-5.00); WBC 10.4 thou/uL (4.0-11.0)
[2019-12-27 08:00] VITALS: BP 158/74
[2019-12-27 12:08] VITALS: BP 154/78
--- NOTE | 2019-12-27 13:05 | NUR ---
Per , Pt to have kyphoplasty tomorrow. CM faxed initial referral to [facility] for skilled. Following.
[2019-12-27] MEDS ORDERED: PROBIOTIC1 EAC7 PO (13:56)
[2019-12-27 16:02] VITALS: BP 154/85
[2019-12-27 20:00] VITALS: BP 151/71
--- NOTE | 2019-12-28 04:40 | NUR ---
ASSUMED PT CARE AT APPROX 1930. PT IS AWAKE AND ORIENTED X4. ASSESSMENT DONE AND CHARTED. PT IS ADVISED TO HAVE NOTHING BY MOUTH AFTER MIDNIGHT FOR POSSIBLE KYPHOPLASTY 12/27. PT C/O LOWER BACK PAIN PARTIALLY RELIEVED BY PAIN MEDICINE GIVEN PER SEP. NO ACUTE CHANGES THROUGH THE NIGHT. PT IS ABLE TO SLEEP MOST OF THE NIGHT. CALL LIGHT WITHIN REACH. HOURLY ROUNDING DONE FOR PT SAFETY. HIGH FALL PRECAUTIONS IN PLACE
[2019-12-28 08:00] VITALS: BP 154/77
--- NOTE | 2019-12-28 09:31 | NUR ---
ASSUMED CARE OF PATIENT THIS AM AT 0730. PATIENT IS ALERT AND ORIENTED X 4. SHE C/O CONTINUED BACK PAIN. PATIENT ASSISTED UP TO BSC THIS AM. PATIENT KEPT NPO FOR SCHEDULED PROCEDURE. PATIENT TO TRANSFER TO ORTHO SPINE.
[2019-12-28 13:08] VITALS: BP 154/77
--- NOTE | 2019-12-28 16:59 | NUR ---
PT A&Ox4. VITALS STABLE. IV PATENT. PAIN DECREASED SINCE PROCEDURE. REGULAR DIET ORDERED. FALL PRECAUTIONS IN PLACE. CALL LIGHT WITHIN REACH. WILL CONTINUE TO MONITOR.
[2019-12-28 20:00] VITALS: BP 173/64
[2019-12-29] VITALS: BP 152/66
[2019-12-29 03:52] VITALS: BP 162/73
--- NOTE | 2019-12-29 06:22 | NUR ---
Alert and oriented x 4. She was extremely cold in her room. Maintenance said they could not increase the temp in the room. We did move her to a different room and it has been better for her. She is moving better according to her. She has been up to the bedside commode with stand by assist. BP was elevated at beginning of the shift and PRN IV hydralazine was given. She did also state that she does not take celebrex or flomax nasal spray. New order recieved for miralax. She had oral pain meds for her lumbar spine x 2. She did have benadryl at midnight for itching.
[2019-12-29 07:30] VITALS: BP 156/63
[2019-12-29 12:00] VITALS: BP 148/66
--- NOTE | 2019-12-29 16:30 | NUR ---
VISITED WITH PT. TOLD HER THAT [facility] CAN ACCEPT HER TOMORROW ARRANGED. SHE SAID THE DREloiseTOLD ME I COULD GO UPSTAIRS TO REHAB. EXPLAINED SINCE SHE DID NOT HAVE ANYONE THAT COULD STAY WITH HER 09/02 AT DISCHARGE FROM REHAB, REHAB DREloiseWOULD NOT LIKELY TAKE HER. ALSO EXPLAINED SHE WOULD MOST LIKELY NOT BE ABLE TO TOLERATE THE AGRESSIVE REHAB THERAPY REGIMEN. CONFIRMED WITH ADRIAN/JANEY AND SHE SAID WOULD BE BEST FOR PT.TO GO TO SNF. PT.NEEDING PAIN MEDS. SEEMED VERY ANXIOUS.
--- NOTE | 2019-12-29 18:07 | NUR ---
ASSUMED CARE OF PATIENT AT APPROX 0730. ALERT AND ORIENTED X4. ASSESSMENT COMPLETED AND CHARTED. VSS ON ROOM AIR. COMPLAINTS OF PAIN ADDRESSED WITH TRAMADOL, TYLENOL, LIDOCAINE PATCH AND ICE PACKS. PATIENT IS UP WITH ASSIST TO THE BATHROOM. NO OTHER COMPLAINTS THIS SHIFT. CALL LIGHT IN REACH. HOURLY ROUNDS COMPLETED. WILL CONTINUE WITH PLAN OF CARE.
[2019-12-29 21:00] VITALS: BP 174/80
[2019-12-30] VITALS: BP 172/71
--- NOTE | 2019-12-30 06:29 | NUR ---
Alert and oriented x 4. She is up with stand by assist to bedside commode. Dressing to midback is intact. She did have pain med at bedtime and has slept well. She did discuss last evening how she doesn't want to go to skilled. Her PCR for briggs virus was not detected. Message sent to Hospitalist this am. She has slept well.
[2019-12-30 08:00] VITALS: BP 151/75
--- NOTE | 2019-12-30 17:00 | NUR ---
PT.REFUSING SNF. PUT IN REHAB EVAL. THERAPIES SAW HER TODAY. PER ADRIAN/REHAB ANGIE, PLAN FOR PT.IS TO BE REEVAL'D FOR INPT.REHAB TOMORROW BY THERAPIES. DEPEMDING ON HOW SHE DOES,SHE MAY BE ABLE TO GO TO REHAB THURSDAY OR THURSDAY. YOSEPH NINO COULD NOT HOLD BED AFTER TODAY, IF PT.NEEDS SNF. DISCUSSED WITH PT.AND CM CALLED DAUGHTER,OCTOBER.
--- NOTE | 2019-12-30 17:40 | NUR ---
PT IS A/O X4,VSS,MED-SURG STATUS.PAIN MANAGED WELL WITH PO MEDICATIONS.PT WORKED WITH PHYSICAL THERAPY AND OT.SAT UP IN CHAIR FOR SEVERAL HOURS.DRESSING CLEAN, DRY, AND INTACT.PT INFORMED OF PLAN OF CARE AND COMMUNICATES UNDERSTANDING.CALL LIGHT AND FALL PRECAUTIONS IN PLACE.WILL CONTINUE TO MONITOR FOR DURATION OF SHIFT.
[2019-12-30 20:30] VITALS: BP 121/64
--- NOTE | 2019-12-31 05:02 | NUR ---
PT A&O, VSS ON RA. MEDS GIVEN ORDERED. PAIN MANAGED WITH TRAMADOL. UP WITH STANDBY ASSIST. DRESSING ON THE BACK C/D/I. NO OTHER CONCERNS AT THIS TIME. WILL COTNINUE TO MONITOR.
[2019-12-31 08:03] VITALS: BP 143/63
--- NOTE | 2019-12-31 17:21 | NUR ---
PT A&Ox4. VITALS STABLE. IV PATENT, SL. PAIN CONTROLLED WITH NORCO. TOLERATING DIET. DENIED N/V. POSSIBLE REHAB TRANSFER TOMORROW. UP WITH STAND BY ASSIST. FALL PRECAUTIONS IN PLACE. CALL LIGHT WITHIN REACH. WILL CONTINUE TO MONITOR.
[2019-12-31 19:40] VITALS: BP 157/69
--- NOTE | 2020-01-01 04:04 | NUR ---
PATIENT A&OX4, ON ROOM AIR, VSS, PT UP WITH SBA. PAIN MED REQUESTED AND GIVEN ORDERED. PT SLEEPING WELL. WILL CONTINUE WITH PLAN OF CARE.
[2020-01-01 07:05] VITALS: BP 154/69
[2020-01-01 13:51] VITALS: BP 154/69
[2020-01-01] MEDS ORDERED: BROVANA15 MCG/2 M INH (16:17)
[2020-01-01] MEDS ORDERED: NORVASC5 MG PO (16:17)
[2020-01-01] MEDS ORDERED: CALCIUM 600 +1 EAC1 PO (16:17)
[2020-01-01] MEDS ORDERED: HYDROCHLOROTHIA25 M1 PO (16:17)
[2020-01-01] MEDS ORDERED: NORCO 10-325 T1 EACH PO (16:17)
[2020-01-01] MEDS ORDERED: FLEXERIL PO (16:17)
[2020-01-01] MEDS ORDERED: ULTRAM 50MG TAB50 MG PO (16:17)
[2020-01-01] MEDS ORDERED: MELATONIN5 M1 PO (16:17)
[2020-01-01 16:24] VITALS: BP 160/71
--- NOTE | 2020-01-01 17:39 | NUR ---
REPORT GIVEN TO REHAB NURSE. PT BELONGINGS GATHERED. IV REMOVED. PT LEFT VIA WHEELCHAIR WITH NURSING STAFF TO REHAB. FALL RISK PRECAUTIONS IN PLACE. HOURLY ROUNDING COMPLETED/
== END 2020-01-01 18:05 | DRG 516 ==
LOC: M.ERS 15:23 → M.2W 18:38 → M.TBA-ER 18:38 → M.2W 20:15 → M.ORTHSURG 12-28 10:08
PROVIDERS: Family Medicine; Personal Emergency Response Attendant; ADMIT Internal Medicine; ATTEND Internal Medicine
DX: M80.08XA Age-related osteoporosis with current pathological fracture, vertebra(e), initial encounter for fracture (principal); R65.10 Systemic inflammatory response syndrome (SIRS) of non-infectious origin without acute organ dysfunction; S33.5XXA Sprain of ligaments of lumbar spine, initial encounter; J44.9 Chronic obstructive pulmonary disease, unspecified; W19.XXXA Unspecified fall, initial encounter; D72.0 Genetic anomalies of leukocytes; M19.90 Unspecified osteoarthritis, unspecified site; Z90.49 Acquired absence of other specified parts of digestive tract; Z90.710 Acquired absence of both cervix and uterus; Z87.01 Personal history of pneumonia (recurrent); Z79.82 Long term (current) use of aspirin; Z79.899 Other long term (current) drug therapy; Z88.1 Allergy status to other antibiotic agents; Z88.5 Allergy status to narcotic agent; Z88.0 Allergy status to penicillin; Z88.2 Allergy status to sulfonamides; Z91.018 Allergy to other foods; Z87.891 Personal history of nicotine dependence; Y93.89 Activity, other specified; Y92.89 Other specified places as the place of occurrence of the external cause; Y99.8 Other external cause status; Z03.818 Encounter for observation for suspected exposure to other biological agents ruled out

== ENCOUNTER 2020-01-01 14:01 | Inpatient (IN) | payer MEDICARE ==
[~2020-01-01] VITALS: Ht 162.6 cm; Wt 90.4 kg
[~2020-01-01 14:01] MED LIST changes: +AYR SALINE50 ML NASAL; +HYDROCODON-ACE1 EAC7 PO; +PROBIOTIC1 EAC7 PO
[2020-01-01] MEDS ORDERED: FLEXERIL PO (16:17)
[2020-01-01] MEDS ORDERED: MELATONIN5 M1 PO (16:17)
[2020-01-01] MEDS ORDERED: ULTRAM 50MG TAB50 MG PO (16:17)
[2020-01-01] MEDS ORDERED: NORCO 10-325 T1 EACH PO (16:17)
[2020-01-01] MEDS ORDERED: NORVASC5 MG PO (16:17)
[2020-01-01] MEDS ORDERED: HYDROCHLOROTHIA25 M1 PO (16:17)
[2020-01-01] MEDS ORDERED: CALCIUM 600 +1 EAC1 PO (16:17)
[2020-01-01] MEDS ORDERED: BROVANA15 MCG/2 M INH (16:17)
[2020-01-01 19:30] VITALS: BP 139/57
--- NOTE | 2020-01-02 04:57 | NUR ---
PT ARRIVED TO FLOOR AT APPROX 1830. PT SITTING IN CHAIR AT SHIFT CHANGE, ADMISSION DATABASE COMPLETED AND REHAB ROUTINE EXPLAINED. PT ALERT AND ORIENTED X4, POLITE AND COOPERATIVE WITH CARES. PT C/O LOWER BACK PAIN, TRAMADOL GIVEN PER ORDERS. PT SKIN INTACT, SMALL DRESSING ON BACK FROM KYPHOPLASTY. PT UP WITH ASSIST OF ONE, GAIT BELT AND WALKER. SLEPT WELL OVERNIGHT. USES CALL LIGHT APPROPRIATELY. CALL LIGHT IN REACH, BED ALARM ON FOR SAFETY. HOURLY ROUNDING IN PROGRESS, WILL CONTINUE TO MONITOR.
[2020-01-02 06:22] VITALS: BP 156/74
[2020-01-02 07:53] VITALS: BP 156/74
[2020-01-02 08:08] LABS: HEMOGLOBIN 14.2 gm/dL (12.0-15.0); MCH 29.5 pg (26.0-34.0); MCHC 33.9 g/dL (28.0-37.0); MCV 86.9 fL (80.0-100.0); MPV 8.1 fl. (7.2-11.1); RBC 4.83 mil/uL (4.20-5.00); RDW-CV 14.9 % (10.5-14.5); WBC 8.2 thou/uL (4.0-11.0)
[2020-01-02 08:27] LABS: ALBUMIN 2.9 g/dL (3.4-5.0); CALCIUM 9.7 mg/dL (8.5-10.1); CREATININE 0.6 mg/dL (0.6-1.3); POTASSIUM 3.6 mmol/L (3.5-5.1); TOTAL BILIRUBIN 0.3 mg/dL (<0.1-1.0); TOTAL PROTEIN 6.6 g/dL (6.4-8.2)
[2020-01-02 09:28] VITALS: BP 156/74
--- NOTE | 2020-01-02 17:04 | NUR ---
SW met with pt to complete initial assessment for inpt rehab. Pt lives at home alone. Pt has supportive dtr and dpoa, October. Pt has other support as well. Pt has RW, hospital bed, borrowed commode over her toilet. Pt would like assist in trying to receive a new mattress for her hospital bed. SW to continue to follow to assist with safe dc planning. SW provided welcome folder and irf sharmaine consent form; pt wanted to look over for a while and SW will follow up with pt on Thursday after team conference.
--- NOTE | 2020-01-02 18:13 | NUR ---
PATIENT HAS HAD A GOOD DAY. SHE PARTICIPATED IN PT AND WENT TO THE GYM THIS MORNING. SHE AMBULATES WITH A WALKER TO THE BATHROOM WITH STAND BY ASSIST. TAKES MEDS WHOLE AND FEEDS HERSELF. SHE NAPPED A FEW TIMES TODAY BUT HAS BEEN WATCHING TV MOSTLY. SHE CAN MAKE HER NEEDS KNOWN AND USES HER CALL LIGHT WHEN SHE NEEDS TO GET UP. FALL PRECAUTIONS HAVE BEEN MAINTAINED TODAY.
[2020-01-02 20:00] VITALS: BP 173/76
--- NOTE | 2020-01-03 04:54 | NUR ---
ASSUMED PT CARE AT 1930. PT ALERT AND ORIENTED X4, POLITE AND COOPERATIVE WITH CARES. PT SITTING UP IN CHAIR TALKING ON PHONE AT SHIFT CHANGE. ICE PACK PROVIDED FOR BACK. DENIES OFFERED PAIN MEDS. PT UP WITH ASSIST OF ONE TO BATHROOM TO VOID. PT SLEPT WELL OVERNIGHT. CALL LIGHT IN REACH. HOURLY ROUNDING IN PROGRESS, WILL CONTINUE TO MONITOR.
[2020-01-03 07:40] VITALS: BP 175/67
--- NOTE | 2020-01-03 13:44 | NUR ---
Nutrition: Pt admitted to rehab. Osteoporotic FX L4. Regular diet. Pt eating well. Wt: 190#. Consult for wt change. Pt stated that she has gained about 12# since "the whole COVID thing started." She has no concerns over this weight gain. She has a good appetite, but is trying to eat healthier. H/o COPD. Albumin 2.9. No nutrition concerns at this time. Low risk.
--- NOTE | 2020-01-03 16:15 | NUR ---
PATIENT UP WITH SBA WALKER AND GAIT BELT THIS SHIFT, THERAPIES COMPLETED. PRN TRAMADOL GIVEN FOR BACK PAIN AND ICE PACKS PROVIDED. PATIENT HAD A BM X 2 THIS SHIFT.
[2020-01-03 18:30] VITALS: BP 132/49
[2020-01-03 20:10] VITALS: BP 158/79
--- NOTE | 2020-01-04 01:08 | NUR ---
ASSUMED CARE @ 1915-01/02-.SITS IN RECLINER WATCHING TV.CHAIR ALARM ALREADY ON @ 1915.HOB UP IN BED.BED ALARM PUT ON @ 2119.ICE PACK APPLIED TO MID LOWER BACK @ 2129 TO 2199.SEE PAIN MANAGEMENT @ 2048.ON HOURLY ROUNDS.
--- NOTE | 2020-01-04 04:54 | NUR ---
SLEPT LATE @ 0000-01/03-THU & SLEEPING GOOD ALL NIGHT.CALLED TWICE TO FIX ROOM TEMPERATURE.TOOK ONLY 50 % BLACK DECAF COFFEE HS SNACK.BRP W/ SBA X2.
[2020-01-04 08:00] VITALS: BP 137/47
--- NOTE | 2020-01-04 14:35 | NUR ---
AM ASSESSMENT AND VITAL SIGNS COMPLETED DOCUMENTED. PT HAS BEEN PLEASANT AND COOPERATIVE, WORKS WITH ALL THERAPIES. PT HAS BEEN CONTINENT OF BOWEL AND BLADDER, AMBULATES TO THE BATHROOM AND IS ABLE TO DO HER OWN HYGIENE AND CLOTHING MANAGEMENT. PT HAS DECLINED PRN PAIN MEDICATIONS. FALL PRECAUTIONS AND HOURLY ROUNDING CONTINUE.
--- NOTE | 2020-01-04 17:06 | NUR ---
ELIANA and Dr Hernandez met with pt to review team conference summary and plan for pt to complete mod I trial and likely dc home alone on Thursday. SW met with pt again and pt wondering about possibility for new hospital bed and/or mattress; SW explained SW will be able to follow up with pt about that tomorrow. Pt has [employer] OPERATOR Lianna Luna (sp?) out of [place] who she plans to follow up with in the future about a possible rollator walker; pt has a standard front wheeled walker she plans to continue to use initially since she has been working with this walker with therapies. SW to continue to follow to assist with safe dc planning.
[2020-01-04 19:40] VITALS: BP 146/57
--- NOTE | 2020-01-05 00:26 | NUR ---
ASSUMED CARE @ 1906-.AWAKE IN BED W/ HOB UP.WATCHING TV.BED ALARM PUT ON @ 1906.WANTS BATHROOM LIGHTS ON ALL NIGHT.ON HOURLY ROUNDS.SBA FOR ALL TRANSFERS & TOILETING.
[2020-01-05 07:15] VITALS: BP 138/55
[2020-01-05 20:00] VITALS: BP 145/61
--- NOTE | 2020-01-05 23:26 | NUR ---
ASSUMED PT CARE AT 1930. PT ALERT AND ORIENTED X4, POLITE AND COOPERATIVE WITH CARES. PT UP TO BATHROOM TO VOID SEVERAL TIMES AND STOOL X1. PT GIVEN MOM AT 2300, REQUESTING MIRALAX BE ORDERED IN THE MORNING. PT RATES PAIN A 4/10 BUT WANTS TO WAIT BEFORE TAKING PAIN MEDICATION. CALL LIGHT IN REACH, BED ALARM ON FOR SAFETY, WILL CONTINUE TO MONITOR.
--- NOTE | 2020-01-06 04:58 | NUR ---
PT SLEPT OFF AND ON OVERNIGHT. UP TO BATHROOM TO VOID X4 AND STOOL X2. PT KEPT AWAKE BY ENVIRONMENTAL NOISE RESULTING FROM PLUMBING REPAIRS. PT WOULD LIKE THE DOCTOR TO ORDER MIRALAX WHICH SHE TAKES AT HOME. PT TOOK MILK OF MAGNESIA X1. PT HAS PRODUCTIVE COUGH AND IS WORRIED SHE WILL NEED ANTIBIOTICS FOR BRONCHITIS. SPUTUM OBSERVED BY THIS NURSE WAS EXTREMELY THICK AND LIGHT YELLOW. CALL LIGHT IN REACH. BED ALARM ON FOR SAFETY. HOURLY ROUNDING IN PROGRESS, WILL CONTINUE TO MONITOR.
[2020-01-06 07:30] VITALS: BP 147/64
[2020-01-06 13:23] LABS: URINE BILIRUBIN NEGATIVE (Negative); URINE BLOOD 1+ (Negative); URINE CLARITY CLEAR; URINE COLOR YELLOW; URINE GLUCOSE-RANDOM NEGATIVE (Negative); URINE KETONES NEGATIVE (Negative); URINE LEUKOCYTES-REFLEX 3+ (Negative); URINE NITRITE-REFLEX NEGATIVE (Negative); URINE PROTEIN NEGATIVE (Negative); URINE SPECIFIC GRAVITY <= 1.005 (1.005-1.030); URINE UROBILINOGEN 0.2 E.U./dl (0.2-1.0)
[2020-01-06 13:29] LABS: BACTERIA-REFLEX >30 Many /HPF (None Seen); SQUAMOUS 4-10 Moderate /LPF (0-3); URINE RBC 0-2 Rare /HPF (0-2); URINE WBC-REFLEX >25 Many /HPF (0-5)
[2020-01-06 13:30] LABS: CASTS None Seen /LPF (None Seen); CRYSTALS None Seen /LPF (None Seen)
--- NOTE | 2020-01-06 16:56 | NUR ---
ALERT AND ORIENTED X4. UP WITH 1 ASSIST, GAIT BELT AND WALKER. PO PAIN MEDICATION GIVEN AND HELPFUL WITH BACK PAIN. C/O BURNING WITH AFTER URINATION. DR NOTIFIED. UA RESULTS CALLED TO DR. TURNER ANTIBIODIC ORDERED. NEW ORDER TODAY FOR PATIENT TO MODIFIED INDEPENDENT IN ROOM. USES CALL LIGHT WHEN NEEDING ASSIST.
--- NOTE | 2020-01-06 17:11 | NUR ---
Pt to dc home on Thursday; pt dtr plans to provide pt ride home. Fax info and final dc orders/med list to [facility] fax number: [phone] Hospital bed to be provided through [facility] [place] [phone]. They will contact pt to arranged timing of delivery to pt home once pt is home.
[2020-01-06 20:09] VITALS: BP 145/63
--- NOTE | 2020-01-07 01:12 | NUR ---
ASSUMED CARE AT 1930. PATIENT RESTING IN CHAIR. MOD I IN ROOM. USES WALKER. NO UNSAFE BEHAVIORS NOTED. FIRST DOSE OF CIPRO GIVEN. TAKES PILLS WHOLE WITH WATER. CALL LITE IN REACH. HOURLY ROUNDS CONTINUE.
--- NOTE | 2020-01-07 05:53 | NUR ---
SLEPT MOST OF THE NIGHT. MOD I IN ROOM. UP TO VOID PER SELF. NO C/O PAIN, NO REQUESTS VERBALIZED. HOURLY ROUNDS CONTINUE. BED ALARM ON. CALL LITE IN REACH.
[2020-01-07 08:16] VITALS: BP 126/58
--- NOTE | 2020-01-07 16:33 | NUR ---
ASSUMMED CARE OF PT AT 0730, PT ALERT AND ORIENTED, MOD I IN ROOM, C/O BACK PAIN MEDICATED X2 WITH GOOD RELIEF, ICE PACKS TO BACK AT INTERVALS, PT STATES SHE DOES NOT HAVE BURNING WITH URINATION TODAY, TAKING FOOD AND FLUIDS WELL, UP IN CHAIR ALL SHIFT, ASSESSMENT COMPLETE, HOURLY ROUNDING DONE WILL CONTINUE TO MONITOR, PT STATES SHE TALKS WITH DAUGHTER DAILY AND DOES NOT NEED NURSE TO UPDATE FAMILY.
[2020-01-07 20:00] VITALS: BP 137/49
--- NOTE | 2020-01-07 23:00 | NUR ---
ASSUMED CARE AT 1930. PATIENT MOD I IN ROOM. ASKS MANY QUESTIONS AND STILL HAS SMALL NEEDS FULFILLED BY NURSING. NO C/O PAIN. TAKES PILLS WHOLE ONE AT A TIME. TURNS SELF. HOURLY ROUNDS CONTINUE. CALL LITE IN REACH.
[2020-01-08] MEDS ORDERED: NORCO 5-325 TA1 EAC1 PO (04:36)
[2020-01-08] MEDS ORDERED: ULTRAM 50MG TAB50 MG PO (04:37)
--- NOTE | 2020-01-08 05:47 | NUR ---
HAS BEEN MOD I IN ROOM ALL SHIFT. USES WALKER IN ROOM. NO UNSAFE BEHAVIORS NOTED, BUT THIS NURSE DID GIVE SOME HINTS TO MANAGEMENT OF ROOM FURNITURE INCLUDING CHAIR AND BEDSIDE TABLE PLACEMENT TO ALLOW EASY PASSAGE THROUGH ROOM. HOURLY ROUNDS CONTINUE. CALL LITE IN REACH.
[2020-01-08 08:03] VITALS: BP 139/65
[2020-01-08 09:12] VITALS: BP 139/65
[2020-01-08] MEDS ORDERED: LEVAQUIN 500 M500 M3 PO (11:13)
--- NOTE | 2020-01-08 13:07 | NUR ---
ASSUMMED CARE OF PT AT 0730, PT ALERT AND ORIENTED, MOD I IN ROOM, PT C/O PAIN IN BACK, MEDICATED X 1 FOR PAIN, PT WASHED SELF AT SINK, DRESSED SELF, ASSESSMENT COMPLETE, HOURLY ROUNDING COMPLETE, ORDERS OBTAINED FOR DISCHARGE, DISCUSSED HOME MEDICATIONS, FOLLOW UP APPOINTMENTS, WHEN TO CALL PHYSICIAN, HOME HEALTH, QUESTIONS ANSWERED, SCRIPTS GIVEN TO PT, PT DISCHARGED PER THERAPIST TO ER ENTRANCE, WITH BELONGINGS.
== END 2020-01-08 13:00 | disposition home health service (06) | DRG 543 ==
LOC: M.REH 14:01
PROVIDERS: ADMIT Physical Medicine & Rehabilitation; ATTEND Physical Medicine & Rehabilitation
DX: M80.88XA Other osteoporosis with current pathological fracture, vertebra(e), initial encounter for fracture (principal); R65.10 Systemic inflammatory response syndrome (SIRS) of non-infectious origin without acute organ dysfunction; J44.9 Chronic obstructive pulmonary disease, unspecified; D72.0 Genetic anomalies of leukocytes; M19.90 Unspecified osteoarthritis, unspecified site; Z90.710 Acquired absence of both cervix and uterus; Z90.49 Acquired absence of other specified parts of digestive tract; Z88.5 Allergy status to narcotic agent; Z88.0 Allergy status to penicillin; Z88.8 Allergy status to other drugs, medicaments and biological substances

== ENCOUNTER 2020-01-14 19:00 | Emergency (ER) | payer MEDICARE ==
[~2020-01-14] VITALS: Ht 162.6 cm; Wt 83.5 kg
[~2020-01-14 19:00] MED LIST changes: +BROVANA15 MCG/2 M INH; +CALCIUM 600 +1 EAC1 PO; +FLEXERIL PO; +HYDROCHLOROTHIA25 M1 PO; +LEVAQUIN 500 M500 M3 PO; +MELATONIN5 M1 PO; +NORCO 10-325 T1 EACH PO; +NORCO 5-325 TA1 EAC1 PO; +NORVASC5 MG PO; +ULTRAM 50MG TAB50 MG PO
[2020-01-14 19:47] LABS: ABSOLUTE EOSINOPHILS 0.3 thou/uL (0.0-0.7); ABSOLUTE LYMPHOCYTES 3.1 thou/uL (0.8-5.3); ABSOLUTE MONOCYTES 1.1 thou/uL (0.0-1.2); ABSOLUTE NEUTROPHILS 5.7 thou/uL (1.6-8.1); BASOPHILS 0.4 %; EOSINOPHILS 2.9 %; HEMATOCRIT 43.7 % (37.0-47.0); LYMPHOCYTES 30.2 %; MCH 29.9 pg (26.0-34.0); MCHC 34.2 g/dL (28.0-37.0); MCV 87.5 fL (80.0-100.0); MONOCYTES 10.4 %; MPV 7.7 fl. (7.2-11.1); NUCLEATED RBCS 0 /100WBC; PLATELET COUNT* 281 thou/uL (150-400); POLYS 56.1 %; RDW-CV 14.5 % (10.5-14.5); WBC 10.2 thou/uL (4.0-11.0)
[2020-01-14 19:58] LABS: CREATININE 0.6 mg/dL (0.6-1.3); POTASSIUM 3.7 mmol/L (3.5-5.1)
[2020-01-14 20:03] LABS: ALBUMIN 3.4 g/dL (3.4-5.0); TOTAL BILIRUBIN 0.2 mg/dL (<0.1-1.0); TOTAL PROTEIN 7.3 g/dL (6.4-8.2)
[2020-01-14] MEDS ORDERED: HYDROCHLOROTHIA25 M2 PO ×2 (21:27→22:19)
[2020-01-14] MEDS ORDERED: NORVASC5 M1 PO (21:27)
[2020-01-14 22:11] VITALS: BP 166/71
--- NOTE | 2020-01-16 10:37 | EKG ---
[place] [address] ELECTROCARDIOGRAM REPORT Name: FARHANA STYLES Room: [facility]#: [id number] Admission: 01/14/20 Attend Phys: Discharge: 01/14/20 Date of : 41 Date of Service: 01/14/201917 Report #: [id number] THIS REPORT FOR: //name// [facility] ED Test Date: 2020-01-14 Test Time: 19:18:06 Pat Name: FARHANA STYLES Department: Room: Gender: F Access Rep: GRAY : 1945 Requested By: Jennifer Clemons Order Number: [id number] MD: Warner Franklin Measurements Intervals [place] Rate: 115 P: 70 ND: 177 QRS: 24 QRSD: 87 T: 41 QT: 328 QTc: 454 Interpretive Statements Sinus tachycardia Anterior infarct, old Compared to ECG 01/21/2019 13:08:45 No significant changes Electronically Signed On 01-16-2020 10:36:40 CDT by Warner Franklin [email or web address] <ELECTRONICALLY SIGNED> By: Warner Franklin MD, [facility] 01/16/20 1036 17 17 Warner Franklin MD, [facility] /EPI
== END 2020-01-14 22:23 | disposition home or self-care (01) ==
LOC: M.ERS 19:00
PROVIDERS: Emergency Medicine
DX: I10 Essential (primary) hypertension (principal); J44.9 Chronic obstructive pulmonary disease, unspecified; Z90.49 Acquired absence of other specified parts of digestive tract; Z90.710 Acquired absence of both cervix and uterus; Z87.891 Personal history of nicotine dependence; Z91.018 Allergy to other foods; Z88.0 Allergy status to penicillin; Z88.1 Allergy status to other antibiotic agents; Z88.2 Allergy status to sulfonamides; Z88.6 Allergy status to analgesic agent; Z88.8 Allergy status to other drugs, medicaments and biological substances

== ENCOUNTER → 2021-08-30 | Outpatient (CLI) | payer OTHER ==
[~2021-08-30] MED LIST changes: +HYDROCHLOROTHIA25 M2 PO; +NORVASC5 M1 PO
== END ==
LOC: M.MRI 12:49
PROVIDERS: ATTEND Orthopaedic Surgery
DX: S83.242A Other tear of medial meniscus, current injury, left knee, initial encounter (principal); M25.862 Other specified joint disorders, left knee; M17.12 Unilateral primary osteoarthritis, left knee; M25.462 Effusion, left knee; X58.XXXA Exposure to other specified factors, initial encounter; Y93.89 Activity, other specified; Y92.89 Other specified places as the place of occurrence of the external cause; Y99.8 Other external cause status